=== PATIENT | male | born 1990 | race Caucasian/White ===

== ENCOUNTER 2020-12-22 11:59 | Emergency (ER) | payer OTHER ==
[2020-12-22 12:03] VITALS: RESP 20; TEMP 98.3
[2020-12-22] MEDS ORDERED: KETOROLAC 15 MG/ML 1 ML VIAL IVP STA (12:37)
--- NOTE | 2020-12-22 12:39 | ED ---
General Adult HPI - General Chief complaint: Upper Respiratory Infection Stated complaint: Cough/Rt Side Pain Time Seen by Provider: 12/22/20 12:17 Source: patient, RN notes reviewed Mode of arrival: ambulatory Limitations: no limitations - History of Present Illness Initial comments: Patient is a pleasant 30-year-old male presenting to the emergency Department with complaints of right lower chest discomfort. Onset of symptoms was a day or 2 ago however discomfort became much worse the past hour. Patient does have moderate dry cough. No fever. No history of similar symptoms previously. Patient denies dyspnea. Patient denies any abdominal discomfort. No change of symptoms with food intake. - Related Data Previous Rx's Medication Instructions Recorded Albuterol Sulfate [Albuterol 2 puff INHALATION Q6H PRN #1 12/22/20 Sulfate Hfa] inhaler Ibuprofen [Motrin] 600 mg PO Q6HR PRN #20 tab 12/22/20 Allergies Allergy/AdvReac Type Severity Reaction Status Date / Time amoxicillin Allergy Unknown Verified 12/22/20 12:47 Penicillins Allergy Unknown Verified 12/22/20 12:47 Review of Systems ROS Statement: Those systems with pertinent positive or pertinent negative responses have been documented in the HPI. ROS Other: All systems not noted in ROS Statement are negative. Constitutional: Denies: fever, chills Eyes: Denies: eye pain ENT: Denies: ear pain Respiratory: Reports: cough. Denies: dyspnea Cardiovascular: Reports: as per HPI Endocrine: Denies: fatigue Gastrointestinal: Denies: abdominal pain Genitourinary: Denies: dysuria Musculoskeletal: Denies: back pain Skin: Denies: rash Neurological: Denies: weakness Past Medical History Past Medical History: No Reported History History of Any Multi-Drug Resistant Organisms: None Reported Past Surgical History: No Surgical Hx Reported Past Psychological History: No Psychological Hx Reported Smoking Status: Former smoker Past Alcohol Use History: None Reported Past Drug Use History: None Reported General Exam Limitations: no limitations General appearance: alert, in no apparent distress Head exam: Present: normocephalic Eye exam: Present: normal appearance Neck exam: Present: normal inspection Respiratory exam: Present: normal lung sounds bilaterally, chest wall tenderness (Tenderness to the right lower anterior chest wall.). Absent: respiratory distress, decreased breath sounds Cardiovascular Exam: Present: regular rate, normal rhythm GI/Abdominal exam: Present: soft, tenderness (Mild right upper quadrant tenderness). Absent: distended Extremities exam: Present: normal inspection. Absent: pedal edema, calf tenderness Back exam: Present: normal inspection. Absent: tenderness Neurological exam: Present: alert Psychiatric exam: Present: normal affect, normal mood Skin exam: Absent: rash Course Vital Signs 12/22/20 12/22/20 12:01 13:12 Temperature 98.3 F Pulse Rate 88 79 Respiratory 20 20 Rate Blood Pressure 130/83 145/57 O2 Sat by Pulse 96 94 L Oximetry EKG Findings - EKG Comments: EKG Findings:: Normal sinus rhythm with rate of 78. MA 144. QRS 94. QT 398. QTC 453. Normal axis. Normal QRS. No acute ST change. Medical Decision Making - Medical Decision Making Patient reevaluated and does have some improvement of symptoms. Patient updated on results and need for follow-up. Patient does request work note - Lab Data Result diagrams: 12/22/20 12:49 12/22/20 12:49 Lab Results 12/22/20 12/22/20 12/22/20 Range/Units 12:49 12:49 12:49 WBC 6.9 (3.8-10.6) k/uL RBC 4.90 (4.30-5.90) m/uL Hgb 13.9 (13.0-17.5) gm/dL Hct 41.1 (39.0-53.0) % MCV 83.8 (80.0-100.0) fL MCH 28.3 (25.0-35.0) pg MCHC 33.8 (31.0-37.0) g/dL RDW 14.0 (11.5-15.5) % Plt Count 221 (150-450) k/uL MPV 6.8 Neutrophils % 64 % Lymphocytes % 25 % Monocytes % 6 % Eosinophils % 2 % Basophils % 1 % Neutrophils # 4.5 (1.3-7.7) k/uL Lymphocytes # 1.7 (1.0-4.8) k/uL Monocytes # 0.4 (0-1.0) k/uL Eosinophils # 0.1 (0-0.7) k/uL Basophils # 0.1 (0-0.2) k/uL PT 10.9 (9.0-12.0) sec INR 1.0 (<1.2) APTT 22.8 (22.0-30.0) sec D-Dimer 0.23 (<0.60) mg/L FEU Sodium 138 (137-145) mmol/L Potassium 3.9 (3.5-5.1) mmol/L Chloride 105 (98-107) mmol/L Carbon Dioxide 30 (22-30) mmol/L Anion Gap 3 mmol/L BUN 15 (9-20) mg/dL Creatinine 0.77 (0.66-1.25) mg/dL Est GFR (CKD-EPI)AfAm >90 (>60 ml/min/1.73 sqM) Est GFR (CKD-EPI)NonAf >90 (>60 ml/min/1.73 sqM) Glucose 121 H (74-99) mg/dL Plasma Lactic Acid Eliud (0.7-2.0) mmol/L Calcium 9.4 (8.4-10.2) mg/dL Total Bilirubin 0.3 (0.2-1.3) mg/dL AST 47 (17-59) U/L ALT 63 H (4-49) U/L Alkaline Phosphatase 67 (38-126) U/L Total Protein 6.6 (6.3-8.2) g/dL Albumin 4.0 (3.5-5.0) g/dL 12/22/20 Range/Units 12:49 WBC (3.8-10.6) k/uL RBC (4.30-5.90) m/uL Hgb (13.0-17.5) gm/dL Hct (39.0-53.0) % MCV (80.0-100.0) fL MCH (25.0-35.0) pg MCHC (31.0-37.0) g/dL RDW (11.5-15.5) % Plt Count (150-450) k/uL MPV Neutrophils % % Lymphocytes % % Monocytes % % Eosinophils % % Basophils % % Neutrophils # (1.3-7.7) k/uL Lymphocytes # (1.0-4.8) k/uL Monocytes # (0-1.0) k/uL Eosinophils # (0-0.7) k/uL Basophils # (0-0.2) k/uL PT (9.0-12.0) sec INR (<1.2) APTT (22.0-30.0) sec D-Dimer (<0.60) mg/L FEU Sodium (137-145) mmol/L Potassium (3.5-5.1) mmol/L Chloride (98-107) mmol/L Carbon Dioxide (22-30) mmol/L Anion Gap mmol/L BUN (9-20) mg/dL Creatinine (0.66-1.25) mg/dL Est GFR (CKD-EPI)AfAm (>60 ml/min/1.73 sqM) Est GFR (CKD-EPI)NonAf (>60 ml/min/1.73 sqM) Glucose (74-99) mg/dL Plasma Lactic Acid Eliud 1.0 (0.7-2.0) mmol/L Calcium (8.4-10.2) mg/dL Total Bilirubin (0.2-1.3) mg/dL AST (17-59) U/L ALT (4-49) U/L Alkaline Phosphatase (38-126) U/L Total Protein (6.3-8.2) g/dL Albumin (3.5-5.0) g/dL - Radiology Data Radiology results: report reviewed (Abdominal ultrasound shows fatty liver.), image reviewed (Chest x-ray shows no acute process) Disposition Clinical Impression: Pleurisy Disposition: HOME SELF-CARE Condition: Stable Instructions (If sedation given, give patient instructions): Pleurisy (ED) Additional Instructions: Please follow-up with primary care physician in the next day or 2 for recheck. Return for difficulty in breathing, fevers, increased pain, worsening symptoms or any other concerns. Prescription for anti-inflammatories has been sent to your pharmacy. Prescriptions: Albuterol Sulfate [Albuterol Sulfate Hfa] 2 puff INHALATION Q6H PRN #1 inhaler PRN Reason: Shortness Of Breath Ibuprofen [Motrin] 600 mg PO Q6HR PRN #20 tab PRN Reason: Pain Is patient prescribed a controlled substance at d/c from ED?: No Referrals: Sachin Valdez MD [STAFF PHYSICIAN] - 1-2 days Time of Disposition: 13:46
[2020-12-22 13:04] LABS: Basophils # (A) 0.1 k/uL (0-0.2); Basophils % (A) 1 %; Eosinophils # (A) 0.1 k/uL (0-0.7); Eosinophils % (A) 2 %; HCT 41.1 % (39.0-53.0); HGB 13.9 gm/dL (13.0-17.5); Lymphocytes # (A) 1.7 k/uL (1.0-4.8); Lymphocytes % (A) 25 %; MCH 28.3 pg (25.0-35.0); MCHC 33.8 g/dL (31.0-37.0); MCV 83.8 fL (80.0-100.0); Mean Platelet Volume 6.8; Monocytes # (A) 0.4 k/uL (0-1.0); Monocytes % (A) 6 %; Neutrophils # (A) 4.5 k/uL (1.3-7.7); Neutrophils % (A) 64 %; Platelet Count 221 k/uL (150-450); WBC 6.9 k/uL (3.8-10.6)
[2020-12-22 13:18] LABS: ALT 63 U/L (4-49); AST 47 U/L (17-59); African American GFR (CKD) >90 (>60 ml/min/1.73 sqM); Alkaline Phosphatase 67 U/L (38-126); Anion Gap 3 mmol/L; Blood Urea Nitrogen 15 mg/dL (9-20); Calcium 9.4 mg/dL (8.4-10.2); Carbon Dioxide 30 mmol/L (22-30); Chloride 105 mmol/L (98-107); Glucose 121 mg/dL (74-99); Non-African American GFR(CKD) >90 (>60 ml/min/1.73 sqM); Potassium 3.9 mmol/L (3.5-5.1); Sodium 138 mmol/L (137-145); Total Bilirubin 0.3 mg/dL (0.2-1.3); Total Protein 6.6 g/dL (6.3-8.2)
--- NOTE | 2020-12-22 13:19 | XR ---
EXAMINATION TYPE: XR chest 2V DATE OF EXAM: 12/22/2020 COMPARISON: NONE HISTORY: Chest pain TECHNIQUE: Frontal and lateral views of the chest are obtained. FINDINGS: There is no focal air space opacity. No evidence for pneumothorax. No pleural effusion. The cardiac silhouette size is within normal limits. The osseous structures are grossly intact. IMPRESSION: 1. No acute cardiopulmonary process.
[2020-12-22 13:23] VITALS: BP 145/57; PULSE 79
[2020-12-22 13:25] LABS: Partial Thromboplastin Time 22.8 sec (22.0-30.0); Prothrombin Time 10.9 sec (9.0-12.0)
--- NOTE | 2020-12-22 13:34 | US ---
EXAMINATION TYPE: US gallbladder DATE OF EXAM: 12/22/2020 COMPARISON: NONE CLINICAL HISTORY: ruq pain. RUQ pain, patient not NPO EXAM MEASUREMENTS: Liver Length: 21.2 cm Gallbladder Wall: 0.2 cm CBD: 0.4 cm Right Kidney: 11.6 x 5.9 x 5.7 cm Difficult and limited study due to patient body habitus Pancreas: visualized portions appear hyperechoic, limited by overlying midline bowel gas Liver: enlarged, attenuating, mildly heterogeneous Gallbladder: wnl Evidence for sonographic Rodriguez's sign: yes CBD: visualized portions wnl, limited by overlying bowel gas Right Kidney: wnl IMPRESSION: Fatty liver with hepatomegaly noted.
[2020-12-22] MEDS ORDERED: ACET/COD 300 MG/30 MG STARTER PACK 6 TAB BTL PO STA (13:47)
== END 2020-12-22 14:04 | disposition home or self-care (01) ==
LOC: EC 11:59
DX: R09.1 Pleurisy (principal); R05 Cough; Z87.891 Personal history of nicotine dependence; Z88.0 Allergy status to penicillin
CPT/HCPCS: 36415; 93005; 85379; 80053; 83605; 85025; 85610; 85730; 71046; 76705; 99285; 96374; J1885

== ENCOUNTER → 2023-08-25 | Outpatient (CLI) | payer OTHER ==
[2023-08-25 15:29] VITALS: BP 125/71; PULSE 106; RESP 20; TEMP 98.2
--- NOTE | 2023-08-25 16:07 | P.SLEEP ---
History of Present Illness DATE: 08/25/2023 CONSULTATION/NEW PATIENT EVALUATION HISTORY OF PRESENT ILLNESS/SLEEP-WAKE EVALUATION: 33-year-old gentleman had b een evaluated in the sleep center for possible obstructive sleep apnea hypopnea syndrome. SLEEP SCHEDULE: Usually sleep schedule from 9 PM to 5 AM 7 days a week. FALLING ASLEEP: Sometimes patient has difficulties with falling asleep, has TV set in bedroom. DURING SLEEP: Patient usually sleeps on the back position with loud snoring and witnessed episodes. Breathing during the sleep. Patient wakes up from sleep up to 5 times with nocturia and sweating. No history of hypnogogical hallucinations, sleep paralysis, or cataplexy. DURING THE DAY/WAKE STATE: In the morning patient wake up tired, falling asleep during the day. [place] sleepiness scale is increased to 19. Patient may take 2 naps during the day in the morning and late afternoon. No vivid dreams during naps. PAST MEDICAL HISTORY: Hypertension, depression, anxiety, episode of angina, possibly heart attack before. PAST SURGICAL HISTORY: None. MEDICATIONS: Please see below. SOCIAL HISTORY: Please see below. FAMILY HISTORY: Hypertension, fibromyalgia, diabetes, thyroid problems, cancer, narcolepsy. REVIEW OF SYSTEMS: Loud snoring, multiple awakenings from sleep, sleepiness during the day. No fevers. No double vision. No recent chest pain. No shortness of breath. No abdominal pain. No bleeding episodes. No blood in urine. No seizure episodes. PHYSICAL EXAMINATION: GENERAL: A pleasant patient without any distress. VITAL SIGNS: Please see below. HEENT: PERRLA, EOMI. Evaluation of oropharynx showed tongue protrudes midline, low position of soft palate Mallampati 4. NECK: Supple. No JVD. Thyroid is not palpable. 22.5 inches in circumference. LUNGS: Clear to percussion and to auscultation. Good air exchange. No wheezing or rhonchi. HEART: S1, S2 regular. No murmurs, gallops or rubs. ABDOMEN: Soft and nontender. Bowel sounds are present. No organomegaly appreciated. Obese EXTREMITIES: No clubbing or cyanosis. FLAT [employer]ORTER PROCESSOR: Awake, alert, and oriented x3. Cranial nerves 2 to 7 intact. There is no fasciculation or atrophy noted. No focal deficits observed. ASSESSMENT: 1. Loud snoring, witnessed episodes of stop breathing during the sleep, extremely low position of soft palate, extremely wide neck 22.5 inches in circumference, significant sleepiness by [place] Sleepiness Scale 19. Obstructive sleep apnea hypopnea syndrome, probably an extremely severe range. 2. Significant sleepiness with [place] Sleepiness Scale 19 dictate necessity to include hypersomnia and narcolepsy and differential diagnosis. Positive family history of narcolepsy. 3. Morbid obesity, BMI 62.4. 4. Hypertension. 5 depression. 6 . Anxiety. 7. Possible heart attack in the past. PLAN: 1. Polysomnography for evaluation of patient's breathing during sleep. 2. CPAP/BiPAP titration if sleep study confirms obstructive sleep apnea- hypopnea syndrome. 3. Preferable position during sleep on the side. 4. No driving if patient feels any sleepiness. Patient is aware of civil and criminal liability for unsafe driving. 5. Sleep hygiene with regular sleep time for at least 7.5-8 hours. 6. Watching and aggressive losing weight. Thank you very much for referring this patient for consultation. Sincerely, Tigre Reza MD, PhD, FAASM. Diplomat of [place] [employer], Sleep Medicine Board by [place] [employer] [place] [employer] [facility] [place] Past Medical History Past Medical History: Hypertension, Pneumonia Additional Past Medical History / Comment(s): pt states he had a abnormal ekg History of Any Multi-Drug Resistant Organisms: None Reported Past Surgical History: No Surgical Hx Reported Past Anesthesia/Blood Transfusion Reactions: No Reported Reaction Past Psychological History: Anxiety, Depression Smoking Status: Former smoker Past Alcohol Use History: None Reported Past Drug Use History: None Reported Medications and Allergies Home Medications Medication Instructions Recorded Confirmed Type Semaglutide [Rybelsus] 3 mg PO 08/25/23 History Sertraline [Zoloft] 08/25/23 History lisinopriL [Zestril] 5 mg PO DAILY 08/25/23 08/25/23 History Allergies Allergy/AdvReac Type Severity Reaction Status Date / Time amoxicillin Allergy Unknown Verified 12/22/20 12:47 Penicillins Allergy Unknown Verified 12/22/20 12:47 Physical Exam Vitals: Vital Signs Temp Pulse Resp BP Pulse Ox 08/25/23 15:12 98.2 F 106 H 20 125/71 93 L Intake and Output 08/25/23 08/25/23 08/25/23 06:59 14:59 22:59 Other: Weight 194.138 kg Sleep Note - Sleep Data ESS Total: 19 - Sleep Note Sleep Note: Temperature: 98.2 F Pulse Rate: 106 Respiratory Rate: 20 Blood Pressure: 125/71 SpO2: 93 Height: 5 ft 9 in Weight: 194.138 kg BMI: Neck Circumference: 22.5
== END ==
LOC: 3 N SLEEP 14:34
PROVIDERS: ATTEND Internal Medicine
DX: G47.33 Obstructive sleep apnea (adult) (pediatric) (principal); G47.10 Hypersomnia, unspecified; E66.01 Morbid (severe) obesity due to excess calories; I10 Essential (primary) hypertension; F32.A Depression, unspecified; F41.9 Anxiety disorder, unspecified; Z68.44 Body mass index [BMI] 60.0-69.9, adult; Z79.899 Other long term (current) drug therapy; Z88.0 Allergy status to penicillin
CPT/HCPCS: 99202

== ENCOUNTER 2023-09-26 19:23 | Outpatient (CLI) | payer OTHER ==
--- NOTE | 2023-09-28 14:47 | P.PCN ---
Description of Procedure: POLYSOMNOGRAPHY REPORT PROCEDURE(S)/DATE(S): Polysomnography 09/26/2023 CLINICAL: Patient has been seen in the sleep center for evaluation of obstructive sleep apnea-hypopnea syndrome. Please see my consultation. Sleep study has been done for evaluation of patient breathing during the sleep. PROCEDURE: The standard montage for clinical polysomnography included the electroencephalogram, the electrooculogram, the mentalis surface electromyography and Lead II cardiography. The respiratory battery consisted of measurements of nasal/buccal air flow, pressure transducer measurements from nose, thoracic and/or abdominal effort and intercostal surface electromyography. Video monitoring has been done to check for any parasomnia events. Nocturnal oxyhemoglobin saturations were obtained by finger oximetry. Step-boggs titration with positive airway pressure was utilized to control the respiratory events, if necessary. RESULTS: During the diagnostic sleep study sleep efficiency was significantly decreased to 70.7%. Latency to sleep onset was normal 17.5 min. Sleep architecture showed stage NI was extremely high 40.4%, Delta sleep was absent 0%, REM sleep was short 9.9%. Respiratory channel showed 111 obstructive apneas, 4 mixed apneas, 0 central apneas, 296 hypopneas with lowest oxygen level 50%. Total apnea hypopnea index was 95.4. Heart rate was in the range between 50 and 88, average 67. EMG showed 0.9 periodic limb movements per hour with 0.5 micro-arousals per hour. IMPRESSIONS: 1. Extremely severe obstructive sleep apnea hypopnea syndrome. 2. No significant periodic limb movements have been documented. Please see other impressions from consultation PLAN: 1. The patient will have PAP titration for correction of respiratory abnormalities during the sleep. 2. Losing weight program. 3. Sleep hygiene with regular time in bed for at least 7-1/2 hours. 4. No driving if feeling sleepiness. Thank you very much for allowing me to participate in the management of your patient. Sincerely, Tigre Reza MD, PhD, FAASM. Diplomat of [place] Board of Sleep Medicine, Sleep Medicine Board by [place] Board of Internal Medicine Nurse Substance Abuse of [facility] [place]
== END 2023-09-27 05:20 | disposition home or self-care (01) ==
LOC: 3 N SLEEP 19:23
PROVIDERS: ATTEND Internal Medicine
DX: G47.33 Obstructive sleep apnea (adult) (pediatric) (principal); Z88.0 Allergy status to penicillin
CPT/HCPCS: 95810

== ENCOUNTER 2023-12-27 19:12 | Outpatient (CLI) | payer OTHER ==
--- NOTE | 2023-12-29 10:51 | P.PCN ---
Description of Procedure: CLINICAL: Titration with positive air pressure has been done for correction of respiratory abnormalities during sleep. DESCRIPTION OF PROCEDURE: The standard montage for clinical polysomnography included the electroencephalogram, the electrocardiogram, the mentalis surface electromyography and Lead II cardiography. The respiratory battery consisted of measurements of nasal /buccal air flow, pressure transducer measurements from the nose, thoracic and /or abdominal effort and intercostal surface electromyography. Video monitoring has been done to check for any parasomnia events. Nocturnal oxyhemoglobin saturations were obtained by finger oximetry. Step-boggs titration with positive airway pressure was utilized to control respiratory events. Raw data of sleep recording has been reviewed and is adequate. RESULTS: Sleep efficiency was decreased to 73.7%. Latency to sleep onset was prolonged at significantly to 48.0 minutes.]. Sleep architecture showed stage N1 was extremely short 1.6%, Delta sleep was in high range 25.7%, REM sleep was extremely high 54.4%. Heart rate was minimum 62 BPM, maximum 94 BPM, average 76 BPM. EMG showed 73.6 periodic limb movements per hour with 0 micriarousals per hour. PAP titration have been done with CPAP up to the pressure 17 cm H2O. Patient continued abnormalities of respiration with CPAP, switched to BPAP. BPAP titrated up to 22/18 cm H2O. The best results were at the pressure 22/18 cm H2O. Apnea hypopnea index reduced to 15.5. IMPRESSION: 1. Extremely severe obstructive sleep apnea hypopnea syndrome with original apnea hypopnea index 95.4 and oxygen saturation to 50% improved with PAP treatment. 2. Significant periodic limb movements have been documented. Please see other impressions from consultation. PLAN: 1. The patient will have treatment with positive air pressure equipment with the level of pressure AutoBIPAP with maximal inspiratory pressure 23 minimal exp iratory pressure 10 and pressure support 4 cm H2O and should use it every night for the whole night. 2. Watching and aggressive losing weight. 3. Sleep hygiene with regular time in bed for at least 8 hours. 4. No driving if feeling any sleepiness. 5. I will see the patient for follow up visit to explain the results of the test, recommendations, check compliance with treatment and make any necessary adjustment related to mask fitting, pressure and humidification. 6. Please check iron profile including ferritin level. Low level of iron may increase risk for periodic limb movements Thank you very much for allowing me to participate in the management of your patient. Sincerely, Tigre Reza MD, PhD, FAASM Diplomat of [place] [employer] Sleep Medicine Board of [place] [employer] Software Systems Analyst of [facility] [place] cc: Radu Reid DO
== END 2023-12-28 05:15 | disposition home or self-care (01) ==
LOC: 3 N SLEEP 19:12
PROVIDERS: ATTEND Internal Medicine
DX: G47.33 Obstructive sleep apnea (adult) (pediatric) (principal); G47.61 Periodic limb movement disorder; Z88.0 Allergy status to penicillin
CPT/HCPCS: 95811

== ENCOUNTER 2024-03-25 10:06 | Emergency (ER) | payer OTHER ==
[2024-03-25] MEDS: ACETAMINOPHEN TAB 500 MG TAB PO STA (11:09)
--- NOTE | 2024-03-25 11:20 | ED ---
ENT HPI - General Chief complaint: ENT Stated complaint: Congestion Time Seen by Provider: 03/25/24 11:18 Source: patient, RN notes reviewed Mode of arrival: ambulatory Limitations: no limitations - History of Present Illness Initial comments: 34-year-old male presented to the ER with a chief complaint of left ear pain and cough. Patient states for the past week he has been experiencing congestion, cough and feeling unwell. Patient has been taking [id number] DayQuil for symptom control. He states yesterday he sneezed and felt a pop in his left ear. He states since then he has been having intense pain to his left ear, face and jaw. He denies any drainage or bleeding from ear. He states hearing seems muffled. Denies any fevers, chills, chest pain, shortness of breath/wheezing, abdominal pain or other complaints. Patient has a past medical history significant of hypertension and sleep apnea. - Related Data Home Medications Medication Instructions Recorded Confirmed Semaglutide [Rybelsus] 3 mg PO 08/25/23 Sertraline [Zoloft] 08/25/23 lisinopriL [Zestril] 5 mg PO DAILY 08/25/23 08/25/23 Previous Rx's Medication Instructions Recorded Azithromycin [Zithromax Z Pack] 0 tab PO DIRECTED #6 tab 03/25/24 Allergies Allergy/AdvReac Type Severity Reaction Status Date / Time amoxicillin Allergy Rash/Hives Verified 03/25/24 10:13 Penicillins Allergy Rash/Hives Verified 03/25/24 10:13 Review of Systems ROS Statement: Those systems with pertinent positive or pertinent negative responses have been documented in the HPI. ROS Other: All systems not noted in ROS Statement are negative. Past Medical History Past Medical History: Hypertension, Pneumonia Additional Past Medical History / Comment(s): pt states he had a abnormal ekg History of Any Multi-Drug Resistant Organisms: None Reported Past Surgical History: No Surgical Hx Reported Past Anesthesia/Blood Transfusion Reactions: No Reported Reaction Past Psychological History: Anxiety, Depression Smoking Status: Former smoker Past Alcohol Use History: None Reported Past Drug Use History: Marijuana General Exam Limitations: no limitations General appearance: alert, in no apparent distress ENT exam: Present: normal oropharynx, mucous membranes moist, other (Left external auditory canal is erythematous. Visualized portion of tympanic membrane appears to be bulging. No mastoid tenderness bilaterally) Neck exam: Present: normal inspection. Absent: tenderness, meningismus, lymphadenopathy Respiratory exam: Present: normal lung sounds bilaterally. Absent: respiratory distress, wheezes, rales, rhonchi, stridor Cardiovascular Exam: Present: regular rate, normal rhythm, normal heart sounds. Absent: systolic murmur, diastolic murmur, rubs, gallop, clicks Neurological exam: Present: alert, oriented X3, CN II-XII intact Skin exam: Present: warm, dry, intact, normal color. Absent: rash Course Vital Signs 03/25/24 03/25/24 10:08 13:32 Temperature 97.9 F 98.1 F Pulse Rate 115 H 98 Respiratory 22 18 Rate Blood Pressure 160/72 136/86 O2 Sat by Pulse 97 95 Oximetry Medical Decision Making - Medical Decision Making Was pt. sent in by a medical professional or institution ([facility], [employer], urgent care, hospital, or [facility]...) When possible be specific @ -No Did you speak to anyone other than the patient for history (EMS, parent, family, police, friend...)? What history was obtained from this source @ -No Did you review nursing and triage notes (agree or disagree)? Why? @ -I reviewed and agree with nursing and triage notes Were old charts reviewed (outside hosp., previous admission, EMS record, old EKG, old radiological studies, urgent care reports/EKG's, [facility] records)? Report findings @ -No old charts were reviewed Differential Diagnosis (chest pain, altered mental status, abdominal pain women, abdominal pain men, vaginal bleeding, weakness, fever, dyspnea, syncope, headache, dizziness, GI bleed, back pain, seizure, CVA, palpatations, mental health, musculoskeletal)? @ -COVID, RSV, influenza, viral sinusitis, pneumonia this list is not meant to be all-inclusive EKG interpreted by me (3pts min.). @ -None done X-rays interpreted by me (1pt min.). @ -CXR by me negative for acute cardiopulmonary process. CT interpreted by me (1pt min.). @ -None done U/S interpreted by me (1pt. min.). @ -None done What testing was considered but not performed or refused? (CT, X-rays, U/S, labs)? Why? @ -None What meds were considered but not given or refused? Why? @ -None Did you discuss the management of the patient with other professionals (professionals i.e. , PA, TREE TAPPING LABORER, lab, RT, psych nurse, social media marketing specialist, tire setter, teacher, logistics officer, nurse case manager)? Give summary @ -No Was smoking cessation discussed for >3mins.? @ -No Was critical care preformed (if so, how long)? @ -No Were there social determinants of health that impacted care today? How? (Homelessness, low income, unemployed, alcoholism, drug addiction, transportation, low edu. Level, literacy, decrease access to med. care, assisted, rehab)? @ -No Was there de-escalation of care discussed even if they declined (Discuss DNR or withdrawal of care, Hospice)? DNR status @ -No What co-morbidities impacted this encounter? (DM, HTN, Smoking, COPD, CAD, Cancer, CVA, ARF, Chemo, Hep., AIDS, mental health diagnosis, sleep apnea, morbid obesity)? @ -Obese/sleep apnea Was patient admitted / discharged? Hospital course, mention meds given and route, prescriptions, significant lab abnormalities, going to OR and other pertinent info. @ -Discharge. 34-year-old male presenting to the ER with a chief complaint of left ear pain and cough. History and physical exam completed. Vitals within normal limits. Patient in no signs of acute distress nontoxic-appearing. Exam remarkable for erythematous left auditory canal entire tympanic membrane unable to be visualized. Visualized membrane does appear to be bulging findings consistent with otitis media. No mastoid tenderness bilaterally. Exam otherwise benign. CXR completed due to cough and negative. Patient will be started on azithromycin for otitis media given PCN allergy. Patient also started on ofloxacin eardrops due to concern of tympanic membrane rupture due to sudden onset left ear pain after sneezing. Strict return parameters discussed. Patient discharged in stable condition with follow-up to PCP. Patient verbally expressed understanding and agreement with care plan. Case discussed with ED attending, Dr. Villasenor. Undiagnosed new problem with uncertain prognosis? @ -No Drug Therapy requiring intensive monitoring for toxicity (Heparin, Nitro, Insulin, Cardizem)? @ -No Were any procedures done? @ -No Diagnosis/symptom? @ -Otitis media Acute, or Chronic, or Acute on Chronic? @ -Acute Uncomplicated (without systemic symptoms) or Complicated (systemic symptoms)? @ -Uncomplicated Side effects of treatment? @ -No Exacerbation, Progression, or Severe Exacerbation? @ -No Poses a threat to life or bodily function? How? (Chest pain, USA, ND, pneumonia, PE, COPD, DKA, ARF, appy, cholecystitis, CVA, Diverticulitis, Homicidal, Suicidal, threat to staff... and all critical care pts) @ -No - Radiology Data Radiology results: report reviewed, image reviewed Disposition Clinical Impression: Otitis media Disposition: HOME SELF-CARE Condition: Stable Instructions (If sedation given, give patient instructions): Earache (ED) Additional Instructions: Use ofloxacin eardrops 5 drops in left ear twice daily for 5 days. Complete full course of antibiotics. Follow-up PCP. Return to the ER for any new or worsening concerns. Prescriptions: Azithromycin [Zithromax Z Pack] 0 tab PO DIRECTED #6 tab Is patient prescribed a controlled substance at d/c from ED?: No Referrals: Girma Alanis DO [Primary Care Provider] - 1-2 days Time of Disposition: 13:03
--- NOTE | 2024-03-25 11:25 | XR ---
EXAMINATION TYPE: XR chest 2V DATE OF EXAM: 03/25/2024 COMPARISON: 12/22/2020 HISTORY: 34-year-old male cough for one week TECHNIQUE: PA and lateral views FINDINGS: Heart upper limits of normal in size. Mild increased interstitial density. No consolidation or pleura l effusion. IMPRESSION: Mild increased interstitial density could reflect bronchitis or asthma. No focal airspace disease. [facility], , 03/25/2024 11:22 AM
[2024-03-25] MEDS: OFLOXACIN 0.3% OPHTH DROPS 5 ML BOTTLE LEFT EAR STA (13:23)
[2024-03-25 13:33] VITALS: BP 136/86; PULSE 98; RESP 18; TEMP 98.1
== END 2024-03-25 13:25 | disposition home or self-care (01) ==
LOC: EC 10:06
CPT/HCPCS: 71046; 99283

== ENCOUNTER 2024-04-29 04:09 | Emergency (ER) | payer OTHER ==
[2024-04-29 04:15] VITALS: TEMP 98.7
--- NOTE | 2024-04-29 05:01 | ED ---
General Adult HPI - General Chief complaint: Abdominal Pain Stated complaint: UL Abd Pain Source: patient Mode of arrival: ambulatory Limitations: no limitations - History of Present Illness Initial comments: Patient is a 34-year-old with a past medical history of hypertension presenting today for left-sided chest pain worsening with coughing and deep breathing. Patient states that he has been previously diagnosed with pleurisy and this feels similar to that about 5 weeks ago he had an upper respiratory infection that resolved about 2 weeks ago. He states on and off for the last 2 weeks every time he has he coughs he feels sharp pain in the left side of his chest along the left rib cage. He denies cough productive of sputum or hemoptysis. No history of prior PE or DVT. No recent surgery travel or hospitalizations. Is a non-smoker. No history of clotting disorders. No history of cancer. No history of CAD. No lower extremity swelling. No fevers or chills. Has tried naproxen 500 mg once daily for his pain without relief of pain. - Related Data Home Medications Medication Instructions Recorded Confirmed Semaglutide [Rybelsus] 3 mg PO 08/25/23 Sertraline [Zoloft] 08/25/23 lisinopriL [Zestril] 5 mg PO DAILY 08/25/23 08/25/23 Previous Rx's Medication Instructions Recorded Azithromycin [Zithromax Z Pack] 0 tab PO DIRECTED #6 tab 03/25/24 predniSONE [Deltasone] 40 mg PO DAILY 5 Days #8 tab 04/29/24 Allergies Allergy/AdvReac Type Severity Reaction Status Date / Time amoxicillin Allergy Rash/Hives Verified 04/29/24 04:15 Penicillins Allergy Rash/Hives Verified 04/29/24 04:15 Review of Systems ROS Statement: Those systems with pertinent positive or pertinent negative responses have been documented in the HPI. ROS Other: All systems not noted in ROS Statement are negative. Past Medical History Past Medical History: Hypertension, Pneumonia, Sleep Apnea/CPAP/BIPAP Additional Past Medical History / Comment(s): pt states he had a abnormal ekg History of Any Multi-Drug Resistant Organisms: None Reported Past Surgical History: No Surgical Hx Reported Past Anesthesia/Blood Transfusion Reactions: No Reported Reaction Past Psychological History: Anxiety, Depression Smoking Status: Former smoker Past Alcohol Use History: None Reported Past Drug Use History: Marijuana General Exam - General Exam Comments Initial Comments: PE: CONSTITUTIONAL: No apparent distress, well appearing SKIN: Warm, dry, no jaundice, hives or petechiae EYES: Pupils are equally round, extraocular movements intact without nystagmus, clear conjunctiva, non-icteric sclera HENT: Normocephalic, atraumatic, moist mucus membranes, oropharynx clear without exudates NECK: , Full range of motion, normal appearance PULMONARY: Clear to auscultation without wheezes, rhonchi, or rales, normal excursion, no accessory muscle use and no stridor, reproducible TTP along left lateral ribs CARDIOVASCULAR: Regular rate, rhythm, normal S1 and S2. No appreciated murmurs, rubs or gallops. Strong radial pulses with intact distal perfusion. No lower extremity edema GASTROINTESTINAL: Soft, active bowel sounds throughout, Minimal TTP LUQ, patient states feels pain along ribs/lower left lung when this region is palpated, no epigastric TTP, non-distended, no palpable masses, no rebound or guarding. No hepatosplenomegaly GENITOURINARY: MUSCULOSKELETAL: Extremities have no gross deformity, no edema, redness, or swelling. No calf swelling NEUROLOGIC:_a/o x 3, GCS 15, normal mentation and speech. Moves all extremities x 4 without motor or sensory deficit PSYCHIATRIC:_normal mood and affect, thought process is clear and linear Limitations: no limitations Course Vital Signs 04/29/24 04/29/24 04/29/24 04:11 04:26 05:02 Temperature 98.7 F Pulse Rate 105 H 98 Respiratory 20 18 20 Rate Blood Pressure 123/38 111/80 O2 Sat by Pulse 96 98 Oximetry 04/29/24 06:34 Temperature Pulse Rate 98 Respiratory 18 Rate Blood Pressure 136/62 O2 Sat by Pulse 98 Oximetry EKG Findings - EKG Comments: EKG Findings:: Sinus rhythm, rate 90 bpm, SC interval 162 ms, QRS duration 1 to 2 ms, QT/QTc 362/1 4 to 10 ms, normal axis, no ST elevations or depressions, no arrhythmia Medical Decision Making - Medical Decision Making Was pt. sent in by a medical professional or institution (, PA, ANIMAL LABORATORY TECHNICIAN, urgent care, hospital, or senior living...) When possible be specific @ -No Did you speak to anyone other than the patient for history (EMS, parent, family, police, friend...)? What history was obtained from this source @ -No Did you review nursing and triage notes (agree or disagree)? Why? @ -I reviewed and agree with nursing and triage notes Were old charts reviewed (outside hosp., previous admission, EMS record, old EKG, old radiological studies, urgent care reports/EKG's, senior living records)? Report findings Medical records reviewed Differential Diagnosis (chest pain, altered mental status, abdominal pain women, abdominal pain men, vaginal bleeding, weakness, fever, dyspnea, syncope, headache, dizziness, GI bleed, back pain, seizure, CVA, palpatations, mental health, musculoskeletal)? @ -Differential Chest Pain: ACS, PE, pericarditis, pleuritis, costochondritis, pneumothorax, musculoskeletal, GERD, pancreatitis this is not all-inclusive list EKG interpreted by me (3pts min.). @ -As above X-rays interpreted by me (1pt min.). @Mild cardiomegaly, no gross consolidations or pleural effusions, no pneumothorax CT interpreted by me (1pt min.). @ -None done U/S interpreted by me (1pt. min.). @ -None done What testing was considered but not performed or refused? (CT, X-rays, U/S, labs)? Why? @ -None What meds were considered but not given or refused? Why? @I did consider morphine however patient's pain was well controlled with medications provided on arrival Did you discuss the management of the patient with other professionals (professionals i.e. , PA, ANIMAL LABORATORY TECHNICIAN, lab, RT, psych nurse, social service director, radio talk show host, teacher, fisheries officer, watch caser)? Give summary @ -No Was smoking cessation discussed for >3mins.? @ -No Was critical care preformed (if so, how long)? @ -No Were there social determinants of health that impacted care today? How? (Homelessness, low income, unemployed, alcoholism, drug addiction, transportation, low edu. Level, literacy, decrease access to med. care, retirement, rehab)? @ -No Was there de-escalation of care discussed even if they declined (Discuss DNR or withdrawal of care, Hospice)? @ -No What co-morbidities impacted this encounter? (DM, HTN, Smoking, COPD, CAD, Cancer, CVA, ARF, Chemo, Hep., AIDS, mental health diagnosis, sleep apnea, morbid obesity)? @ Obesity, HTN Was patient admitted / discharged? Hospital course, mention meds given and route, prescriptions, significant lab abnormalities, going to OR and other pertinent info. @ -Discharge- Patient is a pleasant 34-year-old gentleman presenting today for left-sided chest pain that worsens with coughing and deep inspiration. Ongoing for 2 weeks. On assessment patient well-appearing and in no acute distress. Winces when coughs, lungs are clear to auscultation bilaterally normal S1-S2 on cardiac exam, left upper quadrant TTP/ TTP left ribs. No epigastric TTP, no guarding or masses. No bruising or skin changes overlying area of pain. Patient states pain similar to when he had pleuritis previously, low suspicion for PE however due to tachycardia on arrival cannot use PERC rule to r/o PE without further testing. Plan for D-dimer, will obtain CT PE versus chest x-ray depending on D- dimer result, EKG, troponin his pain has been intermittent ongoing for 2 weeks, very low suspicion for ACS at this point, IV fluids, Pepcid, Toradol, Tylenol, steroids. Patient is agreeable plan of care. I reviewed patient's labs, there is no leukocytosis, hemoglobin is 11.8, the patient is denied hemoptysis black or bloody stools, sodium 135, glucose 166, troponin less than 0.012, D-dimer 0.35, lipase 811. Labs significant for lipase 811, LFTs wnl, CXR shows no acute process. On reassessment patient endorses improvement in pain, pain mainly occurs with inspiration, politely declined additional pain control as pain is currently controlled. Discussed with patient elevated lipase, he denies alcohol use, no nausea or vomiting, is tolerating PO intake. We maintaining a clear liquid diet and monitoring closely for worsening abdominal pain nausea or vomiting or fevers. Patient will take naproxen twice daily for pleurisy, will be prescribed steroids as well. Patient is comfortable discharge home this point. In my medical judgment there is currently no evidence of an immediate life- threatening or surgical condition. Discharge is therefore indicated at this time. Discharge treatment instructions, follow up instructions, and appropriate emergency department return precautions were discussed with the patient and/or medical decision maker. Patient and/or medical decision maker expressed understanding of and agreed with the treatment plan, follow up instructions, and emergency department return precaution. All patient's and/or medical decision maker's questions were answered. Undiagnosed new problem with uncertain prognosis? @ -No Drug Therapy requiring intensive monitoring for toxicity (Heparin, Nitro, Insulin, Cardizem)? @ -No Were any procedures done? @ -No Diagnosis/symptom? @ -Pleuritis, pancreatitis Acute, or Chronic, or Acute on Chronic? @Acute Uncomplicated (without systemic symptoms) or Complicated (systemic symptoms)? @Complicated Side effects of treatment? @ -No Exacerbation, Progression, or Severe Exacerbation? @ -No Poses a threat to life or bodily function? How? (Chest pain, USA, ND, pneumonia, PE, COPD, DKA, ARF, appy, cholecystitis, CVA, Diverticulitis, Homicidal, Suicidal, threat to staff... and all critical care pts) @ -No - Lab Data Result diagrams: 04/29/24 05:03 04/29/24 05:03 Lab Results 04/29/24 04/29/24 04/29/24 Range/Units 05:03 05:03 05:03 WBC 7.1 (3.8-10.6) k/uL RBC 4.46 (4.30-5.90) m/uL Hgb 11.8 L (13.0-17.5) gm/dL Hct 37.3 L (39.0-53.0) % MCV 83.6 (80.0-100.0) fL MCH 26.3 (25.0-35.0) pg MCHC 31.5 (31.0-37.0) g/dL RDW 15.4 (11.5-15.5) % Plt Count 176 (150-450) k/uL MPV 6.9 Neutrophils % 67 % Lymphocytes % 20 % Monocytes % 7 % Eosinophils % 3 % Basophils % 1 % Neutrophils # 4.8 (1.3-7.7) k/uL Lymphocytes # 1.4 (1.0-4.8) k/uL Monocytes # 0.5 (0-1.0) k/uL Eosinophils # 0.2 (0-0.7) k/uL Basophils # 0.1 (0-0.2) k/uL PT 11.1 (10.0-12.5) sec INR 1.0 (<1.2) APTT 24.1 (22.0-30.0) sec D-Dimer 0.35 (<0.60) mg/L FEU Sodium 135 L (137-145) mmol/L Potassium 4.1 (3.5-5.1) mmol/L Chloride 105 (98-107) mmol/L Carbon Dioxide 28 (22-30) mmol/L Anion Gap 2 mmol/L BUN 12 (9-20) mg/dL Creatinine 0.72 (0.66-1.25) mg/dL Est GFR (CKD-EPI)AfAm >90 (>60 ml/min/1.73 sqM) Est GFR (CKD-EPI)NonAf >90 (>60 ml/min/1.73 sqM) Glucose 166 H (74-99) mg/dL Calcium 8.4 (8.4-10.2) mg/dL Total Bilirubin 0.3 (0.2-1.3) mg/dL AST 25 (17-59) U/L ALT 42 (4-49) U/L Alkaline Phosphatase 87 (38-126) U/L Troponin I (0.000-0.034) ng/mL NT-Pro-B Natriuret Pep <20 pg/mL Total Protein 6.7 (6.3-8.2) g/dL Albumin 3.8 (3.5-5.0) g/dL Lipase 811 H (23-300) U/L Influenza Type A (PCR) (Not Detectd) Influenza Type B (PCR) (Not Detectd) RSV (PCR) (Not Detectd) SARS-CoV-2 (PCR) (Not Detectd) 04/29/24 04/29/24 Range/Units 05:03 05:03 WBC (3.8-10.6) k/uL RBC (4.30-5.90) m/uL Hgb (13.0-17.5) gm/dL Hct (39.0-53.0) % MCV (80.0-100.0) fL MCH (25.0-35.0) pg MCHC (31.0-37.0) g/dL RDW (11.5-15.5) % Plt Count (150-450) k/uL MPV Neutrophils % % Lymphocytes % % Monocytes % % Eosinophils % % Basophils % % Neutrophils # (1.3-7.7) k/uL Lymphocytes # (1.0-4.8) k/uL Monocytes # (0-1.0) k/uL Eosinophils # (0-0.7) k/uL Basophils # (0-0.2) k/uL PT (10.0-12.5) sec INR (<1.2) APTT (22.0-30.0) sec D-Dimer (<0.60) mg/L FEU Sodium (137-145) mmol/L Potassium (3.5-5.1) mmol/L Chloride (98-107) mmol/L Carbon Dioxide (22-30) mmol/L Anion Gap mmol/L BUN (9-20) mg/dL Creatinine (0.66-1.25) mg/dL Est GFR (CKD-EPI)AfAm (>60 ml/min/1.73 sqM) Est GFR (CKD-EPI)NonAf (>60 ml/min/1.73 sqM) Glucose (74-99) mg/dL Calcium (8.4-10.2) mg/dL Total Bilirubin (0.2-1.3) mg/dL AST (17-59) U/L ALT (4-49) U/L Alkaline Phosphatase (38-126) U/L Troponin I <0.012 (0.000-0.034) ng/mL NT-Pro-B Natriuret Pep pg/mL Total Protein (6.3-8.2) g/dL Albumin (3.5-5.0) g/dL Lipase (23-300) U/L Influenza Type A (PCR) Not Detected (Not Detectd) Influenza Type B (PCR) Not Detected (Not Detectd) RSV (PCR) Not Detected (Not Detectd) SARS-CoV-2 (PCR) Not Detected (Not Detectd) Disposition Clinical Impression: Pleuritis, Pancreatitis Disposition: HOME SELF-CARE Condition: Good Instructions (If sedation given, give patient instructions): Pleurisy (ED), Pancreatitis (ED) Additional Instructions: Every disease is a spectrum and a small chance still exists that a serious condition could develop, for this reason, please monitor yourself closely for new, changing or worsening symptoms, symptoms that persist beyond the next 5 days, coughing up blood or thick sputum, difficulty in breathing, lower extremi ty swelling fevers, new or uncontrollable abdominal pain, vomiting, [fever], inability to tolerate/keep down fluids or your medications, inability to follow up with outpatient providers as instructed and should you experience these symptoms or should you have any further concerns for your wellbeing please return to the ED or call 911 immediately. Please maintain a clear liquid diet for the next 24 hours and progress to solids as abdominal pain improves. Drink plenty of fluids. Please takes NSAIDS with food. Your pain can be treated with ibuprofen and acetaminophen. You can take up to 400-600 mg of ibuprofen (Advil, Motrin) 3 times daily (every 8 hours) but can also use lower doses if this relieves your pain. Some people prefer naproxen (Aleve, Naprosyn) which can be taken in doses of 500 mg up to twice a day. Do not take both of these medicines together, and do not combine either with ketorolac (Toradol), meloxicam (Mobic), or indomethacin (Tivorbex). Some people can develop stomach discomfort with higher doses of either ibuprofen or naproxen, if this develops decrease your dose or stop taking it. If you need to take this dose daily for more than a week, please schedule an appointment for re-evaluation with your PCP. Please take these medications with food. You can take up to 1000 mg of acetaminophen (Tylenol) every 6 hours. Be careful as this is included in some medicines like Nyquil, [place], Percocet, Vicodin, STANBACK, Goody's Powders, and Excedrin. You can also use lidocaine patches for topical pain. You can purchase 4% patches over the counter at most drug stores. These can be helpful for pain from your muscles or bones. PLEASE call your primary care physician as soon as possible to arrange / discuss plan for followup appointment. Appointment in the next 1-3 days is strongly encouraged if possible. PLEASE let us know here before you leave if there is anything further we can do to be of any assistance. Take care and feel Better! Prescriptions: predniSONE [Deltasone] 40 mg PO DAILY 5 Days #8 tab Is patient prescribed a controlled substance at d/c from ED?: No Referrals: Girma Alanis, [Primary Care Provider] - 1-2 days
[2024-04-29] MEDS: LIDOCAINE 4% PATCH TOPICAL ONE (05:13)
[2024-04-29] MEDS: SODIUM CHLORIDE 0.9% 1,000 ML IV STA (05:14)
[2024-04-29] MEDS: predniSONE 50 MG TAB PO STA (05:16)
[2024-04-29] MEDS: ACETAMINOPHEN TAB 500 MG TAB PO STA (05:16)
[2024-04-29] MEDS: FAMOTIDINE 20 MG/2 ML VIAL IV STA (05:16)
[2024-04-29] MEDS: KETOROLAC 15 MG/ML 1 ML VIAL IVP STA (05:16)
[2024-04-29 05:20] LABS: Basophils # (A) 0.1 k/uL (0-0.2); Basophils % (A) 1 %; Eosinophils # (A) 0.2 k/uL (0-0.7); Eosinophils % (A) 3 %; HCT 37.3 % (39.0-53.0); HGB 11.8 gm/dL (13.0-17.5); Lymphocytes # (A) 1.4 k/uL (1.0-4.8); Lymphocytes % (A) 20 %; MCH 26.3 pg (25.0-35.0); MCHC 31.5 g/dL (31.0-37.0); MCV 83.6 fL (80.0-100.0); Mean Platelet Volume 6.9; Monocytes # (A) 0.5 k/uL (0-1.0); Monocytes % (A) 7 %; Neutrophils # (A) 4.8 k/uL (1.3-7.7); Neutrophils % (A) 67 %; Platelet Count 176 k/uL (150-450); RBC 4.46 m/uL (4.30-5.90); RDW 15.4 % (11.5-15.5); WBC 7.1 k/uL (3.8-10.6)
[2024-04-29 05:22] VITALS: PULSE 98
[2024-04-29 05:30] LABS: ALT 42 U/L (4-49); AST 25 U/L (17-59); African American GFR (CKD) >90 (>60 ml/min/1.73 sqM); Albumin 3.8 g/dL (3.5-5.0); Alkaline Phosphatase 87 U/L (38-126); Anion Gap 2 mmol/L; Blood Urea Nitrogen 12 mg/dL (9-20); Calcium 8.4 mg/dL (8.4-10.2); Carbon Dioxide 28 mmol/L (22-30); Chloride 105 mmol/L (98-107); Glucose 166 mg/dL (74-99); Lipase 811 U/L (23-300); Non-African American GFR(CKD) >90 (>60 ml/min/1.73 sqM); Potassium 4.1 mmol/L (3.5-5.1); Sodium 135 mmol/L (137-145); Total Bilirubin 0.3 mg/dL (0.2-1.3); Total Protein 6.7 g/dL (6.3-8.2)
[2024-04-29 05:39] LABS: NT-Pro-B-Type Natriuretic Pept <20 pg/mL
[2024-04-29 06:24] LABS: Prothrombin Time 11.1 sec (10.0-12.5)
[2024-04-29 06:25] LABS: Partial Thromboplastin Time 24.1 sec (22.0-30.0)
[2024-04-29 06:35] VITALS: BP 136/62; RESP 18
--- NOTE | 2024-04-29 07:00 | XR ---
2 view chest HISTORY: Left chest pain COMPARISON: 03/25/2024 TECHNIQUE: PA and lateral views chest obtained. FINDINGS: The lungs are clear of consolidative, interstitial or masslike opacity. There is no pleural effusion, pleural thickening or pneumothorax. The heart, pulmonary vasculature, mediastinum and shai are within normal limits. The osseous structures and soft tissues of the thorax are intact. IMPRESSION: No significant abnormality. No acute cardiopulmonary disease. [facility], , 04/29/2024 6:58 AM
== END 2024-04-29 07:31 | disposition home or self-care (01) ==
LOC: EC 04:09
DX: R09.1 Pleurisy (principal); K85.90 Acute pancreatitis without necrosis or infection, unspecified; I10 Essential (primary) hypertension; E66.9 Obesity, unspecified; Z68.44 Body mass index [BMI] 60.0-69.9, adult; Z88.0 Allergy status to penicillin; Z87.891 Personal history of nicotine dependence
CPT/HCPCS: 36415; 93005; 85379; 83880; 80053; 83690; 84484; 85025; 85610; 85730; 87636; 71046; 99285; 96374; 96375; 96361 ×2; J3490; J1885; J7512

== ENCOUNTER 2024-04-30 08:12 | Emergency (ER) | payer OTHER ==
--- NOTE | 2024-04-30 08:35 | ED ---
General Adult HPI - General Chief complaint: Recheck/Abnormal Lab/Rx Stated complaint: Abdominal Pain Time Seen by Provider: 04/30/24 08:20 Source: patient, RN notes reviewed, old records reviewed Mode of arrival: ambulatory Limitations: no limitations - History of Present Illness Initial comments: This is a 34-year-old male who comes in complaining of left-sided chest wall pain. Patient states he was here yesterday and the pain has not gotten any be tter so he came back today. Patient states it hurts when he coughs or touches the area. Patient also states that hurts when he moves or twists. Patient denies any fever or chills. Patient denies any pressure sensation. Patient states if he sits still it does not hurt. Patient states he was put on steroids yesterday but that does not seem to be decreasing the pain. Patient denies being short of breath. - Related Data Home Medications Medication Instructions Recorded Confirmed Semaglutide [Rybelsus] 3 mg PO 08/25/23 Sertraline [Zoloft] 08/25/23 lisinopriL [Zestril] 5 mg PO DAILY 08/25/23 08/25/23 Previous Rx's Medication Instructions Recorded Azithromycin [Zithromax Z Pack] 0 tab PO DIRECTED #6 tab 03/25/24 predniSONE [Deltasone] 40 mg PO DAILY 5 Days #8 tab 04/29/24 Allergies Allergy/AdvReac Type Severity Reaction Status Date / Time amoxicillin Allergy Rash/Hives Verified 04/30/24 08:17 Penicillins Allergy Rash/Hives Verified 04/30/24 08:17 Review of Systems ROS Statement: Those systems with pertinent positive or pertinent negative responses have been documented in the HPI. ROS Other: All systems not noted in ROS Statement are negative. Past Medical History Past Medical History: Hypertension, Pneumonia, Sleep Apnea/CPAP/BIPAP Additional Past Medical History / Comment(s): pt states he had a abnormal ekg History of Any Multi-Drug Resistant Organisms: None Reported Past Surgical History: No Surgical Hx Reported Past Anesthesia/Blood Transfusion Reactions: No Reported Reaction Past Psychological History: Anxiety, Depression Smoking Status: Former smoker Past Alcohol Use History: None Reported Past Drug Use History: Marijuana General Exam - General Exam Comments Initial Comments: GENERAL: Patient is well-developed and well-nourished. Patient is nontoxic and well-hydrated and is in mild distress. ENT: Neck is soft and supple. No significant lymphadenopathy is noted. Oropharynx is clear. Moist mucous membranes. Neck has full range of motion without eliciting any pain. EYES: The sclera were anicteric and conjunctiva were pink and moist. Extraocular movements were intact and pupils were equal round and reactive to light. Eyelids were unremarkable. PULMONARY: Unlabored respirations. Good breath sounds bilaterally. No audible rales rhonchi or wheezing was noted. CARDIOVASCULAR: There is a regular rate and rhythm without any murmurs gallops or rubs. Patient has reproducible tenderness with palpation of the lateral left chest wall ABDOMEN: Patient has mild epigastric abdominal tenderness SKIN: Skin is clear with no lesions or rashes and otherwise unremarkable. NEUROLOGIC: Patient is alert and oriented x3. Cranial nerves II through XII are grossly intact. Motor and sensory are also intact. Normal speech, volume and content. Symmetrical smile. MUSCULOSKELETAL: Normal extremities with adequate strength and full range of motion. LYMPHATICS: No significant lymphadenopathy is noted PSYCHIATRIC: Normal psychiatric evaluation. Limitations: no limitations Course Vital Signs 04/30/24 04/30/24 08:15 08:20 Temperature 97.3 F L Pulse Rate 92 Respiratory 18 20 Rate Blood Pressure 132/68 O2 Sat by Pulse 96 Oximetry Medical Decision Making - Medical Decision Making EKG is interpreted by myself but EKG shows sinus rhythm at 75 bpm PA was under 61 QRS is 97 QT interval 380 QTc of 408. Patient's EKG shows no ST segment elevation or depression. Was pt. sent in by a medical professional or institution (, PA, [employer], urgent care, hospital, or prison...) When possible be specific @ -No Did you speak to anyone other than the patient for history (EMS, parent, family, police, friend...)? What history was obtained from this source @ -No Did you review nursing and triage notes (agree or disagree)? Why? @ -I reviewed and agree with nursing and triage notes Were old charts reviewed (outside hosp., previous admission, EMS record, old EKG, old radiological studies, urgent care reports/EKG's, prison records)? Report findings @ -No old charts were reviewed Differential Diagnosis? @ -Differential Musculoskeletal Muscular strain, contusion, ligament sprain, fracture, arthritis, septic arthritis, bursitis, cellulitis, muscle spasm, nerve compression, DVT, arterial occlusion, herpes zoster, electrolyte abnormality, tumor.... This is not meant to be in all inclusive list EKG interpreted by me (3pts min.). @ -As above X-rays interpreted by me (1pt min.). @ -Chest x-ray showed no acute abnormality CT interpreted by me (1pt min.). @ -None done U/S interpreted by me (1pt. min.). @ -None done What testing was considered but not performed or refused? (CT, X-rays, U/S, labs)? Why? @ -None What meds were considered but not given or refused? Why? @ -None Did you discuss the management of the patient with other professionals (professionals i.e. , PA, [employer], lab, RT, psych nurse, sr. social media & mobile manager, bottom sprayer, teacher, conservation officer, watch case polisher)? Give summary @ -No Was smoking cessation discussed for >3mins.? @ -No Was critical care preformed (if so, how long)? @ -No Were there social determinants of health that impacted care today? How? (Homelessness, low income, unemployed, alcoholism, drug addiction, transportation, low edu. Level, literacy, decrease access to med. care, [facility], rehab)? @ -No Was there de-escalation of care discussed even if they declined (Discuss DNR or withdrawal of care, Hospice)? DNR status @ -No What co-morbidities impacted this encounter? (DM, HTN, Smoking, COPD, CAD, Cancer, CVA, ARF, Chemo, Hep., AIDS, mental health diagnosis, sleep apnea, morbid obesity)? @ -None Was patient admitted / discharged? Hospital course, mention meds given and route, prescriptions, significant lab abnormalities, going to OR and other pertinent info. @ -Patient had reproducible chest wall pain. Patient had no pain while sitting still or not taking a deep breath. X-ray showed no acute abnormality lab work was normal patient will be discharged home to follow-up with a primary medical care doctor and continue his steroids and he will be told also that he can take some Tylenol and at night he will be given a couple Tylenol with codeine for pain if he needs some sleep. Undiagnosed new problem with uncertain prognosis? @ -No Drug Therapy requiring intensive monitoring for toxicity (Heparin, Nitro, Insulin, Cardizem)? @ -No Were any procedures done? @ -No Diagnosis/symptom? @ -Chest wall pain Acute, or Chronic, or Acute on Chronic? @ -Acute Uncomplicated (without systemic symptoms) or Complicated (systemic symptoms)? @ -Uncomplicated Side effects of treatment? @ -No Exacerbation, Progression, or Severe Exacerbation? @ -No Poses a threat to life or bodily function? How? (Chest pain, [place], [place], pneumonia, PE, COPD, DKA, ARF, appy, cholecystitis, CVA, Diverticulitis, Homicidal, Suicidal, threat to staff... and all critical care pts) @ -No - Lab Data Result diagrams: 04/30/24 08:46 04/30/24 08:46 Lab Results 04/30/24 04/30/24 Range/Units 08:46 08:46 WBC 9.1 (3.8-10.6) k/uL RBC 4.53 (4.30-5.90) m/uL Hgb 12.4 L (13.0-17.5) gm/dL Hct 38.1 L (39.0-53.0) % MCV 84.2 (80.0-100.0) fL MCH 27.3 (25.0-35.0) pg MCHC 32.5 (31.0-37.0) g/dL RDW 15.4 (11.5-15.5) % Plt Count 199 (150-450) k/uL MPV 6.8 Neutrophils % 76 % Lymphocytes % 14 % Monocytes % 7 % Eosinophils % 1 % Basophils % 1 % Neutrophils # 7.0 (1.3-7.7) k/uL Lymphocytes # 1.3 (1.0-4.8) k/uL Monocytes # 0.6 (0-1.0) k/uL Eosinophils # 0.1 (0-0.7) k/uL Basophils # 0.0 (0-0.2) k/uL Sodium 137 (137-145) mmol/L Potassium 4.3 (3.5-5.1) mmol/L Chloride 103 (98-107) mmol/L Carbon Dioxide 30 (22-30) mmol/L Anion Gap 4 mmol/L BUN 16 (9-20) mg/dL Creatinine 0.72 (0.66-1.25) mg/dL Est GFR (CKD-EPI)AfAm >90 (>60 ml/min/1.73 sqM) Est GFR (CKD-EPI)NonAf >90 (>60 ml/min/1.73 sqM) Glucose 206 H (74-99) mg/dL Calcium 8.9 (8.4-10.2) mg/dL Total Bilirubin 0.3 (0.2-1.3) mg/dL AST 24 (17-59) U/L ALT 54 H (4-49) U/L Alkaline Phosphatase 115 (38-126) U/L Total Protein 6.6 (6.3-8.2) g/dL Albumin 3.8 (3.5-5.0) g/dL Lipase 232 (23-300) U/L Disposition Clinical Impression: Chest wall pain Disposition: HOME SELF-CARE Instructions (If sedation given, give patient instructions): Chest Wall Pain (ED) Is patient prescribed a controlled substance at d/c from ED?: No Referrals: Martinez Alanis MD [Primary Care Provider] - 1-2 days Time of Disposition: 09:27
[2024-04-30] MEDS: KETOROLAC 15 MG/ML 1 ML VIAL IM STA (08:37)
[2024-04-30] MEDS: KETOROLAC 15 MG/ML 1 ML VIAL IVP STA (08:44)
--- NOTE | 2024-04-30 09:05 | XR ---
EXAMINATION TYPE: XR chest 2V DATE OF EXAM: 04/30/2024 9:00 AM COMPARISON: Chest radiographs from and a CLINICAL INDICATION: Male, 34 years old with history of Difficulty breathing ; [facility] TECHNIQUE: XR chest 2V Frontal and lateral views of the chest. FINDINGS: Lungs/Pleura: Low lung volumes are present. There is no evidence of pleural effusion, focal consolida tion, or pneumothorax. Pulmonary vascularity: Unremarkable. Heart/mediastinum: Cardiomediastinal silhouette is unremarkable. Musculoskeletal: No acute osseous pathology. IMPRESSION: Low lung volumes with a generalized hazy appearance which could represent atelectasis. [facility], , 04/30/2024 9:03 AM
[2024-04-30 09:08] LABS: Basophils % (A) 1 %; Eosinophils # (A) 0.1 k/uL (0-0.7); Eosinophils % (A) 1 %; HCT 38.1 % (39.0-53.0); HGB 12.4 gm/dL (13.0-17.5); Lymphocytes # (A) 1.3 k/uL (1.0-4.8); Lymphocytes % (A) 14 %; MCH 27.3 pg (25.0-35.0); MCHC 32.5 g/dL (31.0-37.0); MCV 84.2 fL (80.0-100.0); Mean Platelet Volume 6.8; Monocytes # (A) 0.6 k/uL (0-1.0); Monocytes % (A) 7 %; Neutrophils % (A) 76 %; Platelet Count 199 k/uL (150-450); RBC 4.53 m/uL (4.30-5.90); RDW 15.4 % (11.5-15.5); WBC 9.1 k/uL (3.8-10.6)
[2024-04-30 09:22] LABS: ALT 54 U/L (4-49); AST 24 U/L (17-59); African American GFR (CKD) >90 (>60 ml/min/1.73 sqM); Albumin 3.8 g/dL (3.5-5.0); Alkaline Phosphatase 115 U/L (38-126); Anion Gap 4 mmol/L; Blood Urea Nitrogen 16 mg/dL (9-20); Calcium 8.9 mg/dL (8.4-10.2); Carbon Dioxide 30 mmol/L (22-30); Chloride 103 mmol/L (98-107); Glucose 206 mg/dL (74-99); Lipase 232 U/L (23-300); Non-African American GFR(CKD) >90 (>60 ml/min/1.73 sqM); Potassium 4.3 mmol/L (3.5-5.1); Sodium 137 mmol/L (137-145); Total Bilirubin 0.3 mg/dL (0.2-1.3); Total Protein 6.6 g/dL (6.3-8.2)
[2024-04-30 09:29] VITALS: BP 128/59; PULSE 76; RESP 18; TEMP 97.8
[2024-04-30] MEDS: ACET/COD 300 MG/30 MG STARTER PACK 6 TAB BTL PO STA (09:33)
== END 2024-04-30 09:37 | disposition home or self-care (01) ==
LOC: EC 08:12
DX: R07.89 Other chest pain (principal); Z87.891 Personal history of nicotine dependence; Z88.0 Allergy status to penicillin
CPT/HCPCS: 36415; 93005; 80053; 83690; 85025; 71046; 99285; 96374; J1885

== ENCOUNTER 2024-08-05 11:36 | Emergency (ER) | payer OTHER ==
[2024-08-05 11:41] VITALS: RESP 18
[2024-08-05] MEDS: ACETAMINOPHEN TAB 500 MG TAB PO STA (11:56)
--- NOTE | 2024-08-05 12:35 | XR ---
Right ankle. HISTORY: Pain following trauma. COMPARISON: None TECHNIQUE: 2 limited views of the right ankle were obtained. FINDINGS: There is no fracture, dislocation or focal intraosseous abnormality. IMPRESSION: Somewhat limited by the technique but no definite evidence of acute trauma. [facility], , 08/05/2024 12:33 PM
--- NOTE | 2024-08-05 12:36 | XR ---
Left knee. Subchondral pain following trauma COMPARISON: None TECHNIQUE: 3 views left knee were obtained. FINDINGS: There is no fracture, this location a focal intraosseous abnormality. There is a large joint effusion . IMPRESSION: Large joint effusion. No acute fracture or dislocation. [facility], , 08/05/2024 12:34 PM
--- NOTE | 2024-08-05 12:37 | XR ---
Left elbow. HISTORY: Pain following trauma COMPARISON: None TECHNIQUE: 2 views of the left elbow were obtained. FINDINGS: There is no fracture, dislocation, intraosseous, intra-articular or soft tissue abnormality. There is no joint effusion. IMPRESSION: No evidence of acute trauma. No significant abnormality. [facility], , 08/05/2024 12:35 PM
--- NOTE | 2024-08-05 13:10 | ED ---
General Adult HPI - General Chief complaint: Fall Stated complaint: Fall-Enrique leg pain Time Seen by Provider: 08/05/24 11:40 Source: patient, RN notes reviewed, old records reviewed Mode of arrival: wheelchair Limitations: no limitations - History of Present Illness Initial comments: Patient is a 34-year-old male who presents emergency department complaining of a fall downstairs. Fall occurred over 24 hours ago. Fell down a carpeted stairs, sliding down the stairs after landing initially on his left knee. States he slipped and fell. Did not hit his head. Denies loss conscious. Is not on blood thinners. Denies any other injuries other than left knee pain, right calf pain, as well as left forearm bruising and pain. Denies any back pain, chest pain, shortness of breath. No other acute complaints at this time. Presents for further evaluation at this time. - Related Data Home Medications Medication Instructions Recorded Confirmed Semaglutide [Rybelsus] 3 mg PO 08/25/23 Sertraline [Zoloft] 08/25/23 lisinopriL [Zestril] 5 mg PO DAILY 08/25/23 08/25/23 Previous Rx's Medication Instructions Recorded Azithromycin [Zithromax Z Pack] 0 tab PO DIRECTED #6 tab 03/25/24 predniSONE [Deltasone] 40 mg PO DAILY 5 Days #8 tab 04/29/24 Allergies Allergy/AdvReac Type Severity Reaction Status Date / Time amoxicillin Allergy Rash/Hives Verified 08/05/24 11:41 Penicillins Allergy Rash/Hives Verified 08/05/24 11:41 Review of Systems ROS Statement: Those systems with pertinent positive or pertinent negative responses have been documented in the HPI. Review of Systems: CONST: Denies fever EYES: Denies blurry vision ENT: Denies nasal congestion C/V: Denies Chest pain RESP: Denies shortness of breath GI: Denies abdominal pain : Denies dysuria SKIN: Denies rash. MSK: Endorses joint pain NEURO: Denies headache ROS Other: All systems not noted in ROS Statement are negative. Past Medical History Past Medical History: Hypertension, Pneumonia, Sleep Apnea/CPAP/BIPAP Additional Past Medical History / Comment(s): pt states he had a abnormal ekg History of Any Multi-Drug Resistant Organisms: None Reported Past Surgical History: No Surgical Hx Reported Past Anesthesia/Blood Transfusion Reactions: No Reported Reaction Past Psychological History: Anxiety, Depression Smoking Status: Former smoker Past Alcohol Use History: None Reported Past Drug Use History: Marijuana General Exam - General Exam Comments Initial Comments: General: Appears in no acute distress. HEAD: Normal with no signs of head trauma. Negative Sandoval sign. Negative raccoon eyes. EYES: PERRLA, EOMI, conjunctiva normal, no discharge. Pupils are 3 mm and equal bilaterally. ENT: Hearing grossly intact, normal oropharynx. RESPIRATORY: Clear breath sounds bilaterally. No wheezes, rales, or rhonchi. C/V: Regular rate and rhythm. S1 and S2 auscultated, no edema, peripheral pulses 2+ and intact throughout ABD: Abd is soft, nontender, nondistended EXT: Pelvis is stable. No significant spinal tenderness to palpation. No spinal step-offs or deformities. Tenderness to palpation of the left knee with reduced range of motion secondary to pain. Patient has mild tenderness palpation of the left elbow. Patient also has mild tenderness palpation of the posterior right ankle. SKIN: Contusion to the left proximal anterior forearm NEURO: Alert and oriented x 4. GCS 15. Limitations: no limitations Course Vital Signs 08/05/24 08/05/24 11:37 13:24 Temperature 98.1 F 98.5 F Pulse Rate 94 88 Respiratory 18 18 Rate Blood Pressure 145/60 139/87 O2 Sat by Pulse 100 94 L Oximetry Medical Decision Making - Medical Decision Making Was pt. sent in by a medical professional or institution ([facility], [employer], urgent care, hospital, or [facility]...) When possible be specific @ -No Did you speak to anyone other than the patient for history (EMS, parent, family, police, friend...)? What history was obtained from this source @ -No Did you review nursing and triage notes (agree or disagree)? Why? @ -I reviewed and agree with nursing and triage notes Were old charts reviewed (outside hosp., previous admission, EMS record, old EKG, old radiological studies, urgent care reports/EKG's, [facility] records)? Report findings @ -No old charts were reviewed Differential Diagnosis (chest pain, altered mental status, abdominal pain women, abdominal pain men, vaginal bleeding, weakness, fever, dyspnea, syncope, headache, dizziness, GI bleed, back pain, seizure, CVA, palpatations, mental health, musculoskeletal)? @ -Differential Musculoskeletal Muscular strain, contusion, ligament sprain, fracture, arthritis, septic arthritis, bursitis, cellulitis, muscle spasm, nerve compression, DVT, arterial occlusion, herpes zoster, electrolyte abnormality, tumor.... This is not meant to be in all inclusive list EKG interpreted by me (3pts min.). @ -None done X-rays interpreted by me (1pt min.). @ -X-rays of the left elbow, left knee, right ankle negative for any obvious acute traumatic injury. Patient does have a joint effusion of the left knee. Does not exclude soft tissue injury. CT interpreted by me (1pt min.). @ -None done U/S interpreted by me (1pt. min.). @ -None done What testing was considered but not performed or refused? (CT, X-rays, U/S, labs)? Why? @ -None What meds were considered but not given or refused? Why? @ -None Did you discuss the management of the patient with other professionals (professionals i.e. , PA, GREY WASHER, lab, RT, psych nurse, transition social worker, soap tender, teacher, biological technical officer, top case assembler)? Give summary @ -No Was smoking cessation discussed for >3mins.? @ -No Was critical care preformed (if so, how long)? @ -No Were there social determinants of health that impacted care today? How? (Homelessness, low income, unemployed, alcoholism, drug addiction, transportation, low edu. Level, literacy, decrease access to med. care, long term, rehab)? @ -No Was there de-escalation of care discussed even if they declined (Discuss DNR or withdrawal of care, Hospice)? DNR status @ -No What co-morbidities impacted this encounter? (DM, HTN, Smoking, COPD, CAD, Cancer, CVA, ARF, Chemo, Hep., AIDS, mental health diagnosis, sleep apnea, morbid obesity)? @ -None Was patient admitted / discharged? Hospital course, mention meds given and route, prescriptions, significant lab abnormalities, going to OR and other pertinent info. @ -Patient presents for a fall over 24 hours ago. Does not meet trauma activation criteria. No loss conscious. No blood thinners. Vitals are within acceptable limits. Has some extremity pain. We will obtain x-rays. Patient administered Tylenol for analgesia. He was in agreement this plan. Imaging negative for any obvious traumatic injury however patient does have a left knee effusion. Possible soft tissue injury. I discussed this with the patient. I did offer a knee immobilizer which he declined. I offered crutches which he declined. He will be discharged home at this time. Patient was in agreement this plan. Strict return precautions discussed. Given orthopedics for follow-up. I instructed the patient to follow up with their PCP in the next 1-3 days. I explained that the patient should return to the emergency department if they experience any worsening symptoms. Strict return precautions were discussed with the patient. The patient expressed understanding of these instructions. I answered all questions that the patient had. The patient was discharged home in good condition with their prescriptions and follow up information. Undiagnosed new problem with uncertain prognosis? @ -No Drug Therapy requiring intensive monitoring for toxicity (Heparin, Nitro, Insulin, Cardizem)? @ -No Were any procedures done? @ -No Diagnosis/symptom? @ -Fall, muscle strains, knee sprain Acute, or Chronic, or Acute on Chronic? @ -Acute Uncomplicated (without systemic symptoms) or Complicated (systemic symptoms)? @ -Uncomplicated Side effects of treatment? @ -No Exacerbation, Progression, or Severe Exacerbation? @ -No Poses a threat to life or bodily function? How? (Chest pain, [place], [place], pneumonia, PE, COPD, DKA, ARF, appy, cholecystitis, CVA, Diverticulitis, Homicidal, Suicidal, threat to staff... and all critical care pts) @ -Unlikely at this time Disposition Clinical Impression: Fall, Muscle strain, Knee sprain Disposition: HOME SELF-CARE Condition: Good Instructions (If sedation given, give patient instructions): Muscle Strain (ED), Fall Prevention (ED) Additional Instructions: Your fall likely resulted and what appears to be muscle strains and bruising. Follow-up with your PCP in the next 1 to 3 days. Follow-up with orthopedics if you are still having knee, calf, arm pain. Return if any worsening symptoms. Is patient prescribed a controlled substance at d/c from ED?: No Referrals: Girma Alanis DO [Primary Care Provider] - 1-2 days Martinez Up DO [Doctor of Osteopathic Medicine] - 1-2 days Time of Disposition: 13:10
[2024-08-05 13:25] VITALS: BP 139/87; PULSE 88; TEMP 98.5
== END 2024-08-05 13:25 | disposition home or self-care (01) ==
LOC: EC 11:36
DX: M79.605 Pain in left leg (principal); M79.604 Pain in right leg; S83.92XA Sprain of unspecified site of left knee, initial encounter; S50.12XA Contusion of left forearm, initial encounter; Z87.891 Personal history of nicotine dependence; W10.9XXA Fall (on) (from) unspecified stairs and steps, initial encounter
CPT/HCPCS: 99283